=== PATIENT | female | born 1950 | race Caucasian/White ===

== ENCOUNTER 2018-05-25 17:51 | Inpatient (IN) | payer MEDICARE, OTHER ==
[~2018-05-25] VITALS: Ht 165.1 cm; Wt 98.4 kg
[~2018-05-25 17:51] MED LIST: ATEN50TA; LVT.05T; METF-380
[2018-05-25] MEDS ORDERED: GABA-486 PO (18:09)
[2018-05-25] MEDS ORDERED: NEED-118 (18:09)
[2018-05-25] MEDS ORDERED: CITA20TA9 PO (18:09)
[2018-05-25] MEDS ORDERED: LEVO75TA6 PO (18:09)
[2018-05-25] MEDS ORDERED: LOSA1TAB23 PO (18:09)
[2018-05-25] MEDS ORDERED: OMEP20CA12 PO (18:09)
[2018-05-25] MEDS ORDERED: INSU100I10 SC (18:09)
[2018-05-25] MEDS ORDERED: METF-399 PO (18:09)
[2018-05-25] MEDS ORDERED: ATEN50TA PO (18:09)
[2018-05-25 18:48] LABS: BILIRUBIN,URINE NEGATIVE (NEGATIVE); CLARITY,URINE CLEAR; COLOR,URINE YELLOW; GLUCOSE, URINE (UA) NEGATIVE (NEGATIVE); KETONES,URINE NEGATIVE (NEGATIVE); LEUKOCYTE ESTERASE ,URINE NEGATIVE (NEGATIVE); NITRITE,URINE NEGATIVE (NEGATIVE); PH,URINE 6 (5-9); PROTEIN,URINE NEGATIVE (NEGATIVE); UROBILINOGEN,URINE NORMAL (NORMAL)
[2018-05-25 18:49] LABS: BASOPHILS % (AUTO) 0 % (0-10); EOSINOPHILS # (AUTO) 0.2 10^3/uL (0.0-0.3); EOSINOPHILS % (AUTO) 1 % (0-10); HEMATOCRIT 39 % (35-52); HEMOGLOBIN 13.7 G/DL (11.5-16.0); LYMPHOCYTES # (AUTO) 2.1 X 10^3 (1.0-4.0); LYMPHOCYTES % (AUTO) 13 % (12-44); MEAN CORPUSCULAR HEMOGLOBIN 29 PG (25-34); MEAN CORPUSCULAR HGB CONC 35 G/DL (32-36); MEAN CORPUSCULAR VOLUME 84 FL (80-99); MEAN PLATELET VOLUME 13.3 FL (7.4-10.4); MONOCYTES % (AUTO) 6 % (0-12); NEUTROPHILS # (AUTO) 13.4 X 10^3 (1.8-7.8); NEUTROPHILS % (AUTO) 80 % (42-75); PLATELET COUNT 266 10^3/uL (130-400); RED BLOOD COUNT 4.69 10^6/uL (4.35-5.85); RED CELL DISTRIBUTION WIDTH 13.7 % (10.0-14.5); WHITE BLOOD COUNT 16.7 10^3/uL (4.3-11.0)
--- NOTE | 2018-05-25 18:55 | ED General ---
General Chief Complaint: Neurological Problems Stated Complaint: STROKE LIKE SYMPTOMS Nursing Triage Note: ARRIVED VIA WC TO TRIAGE. STATES TWO DAYS AGO SHE STARTED HAVING GENERALIZED WEAKNESS IN LEGS BILAT AND SOME DIZZINESS. Nursing Sepsis Screen: No Definite Risk Source of Information: Patient, Old Records (LAST VISIT HERE WAS IN 2008 FOR PALPITATIONS) Exam Limitations: Other (EXTREMELY VAGUE AND DIFFICULT HISTORIAN) History of Present Illness Date Seen by Provider: May 25, 2018 Time Seen by Provider: 18:30 Initial Comments PT ARRIVES VIA POV FROM HOME STATES "MY LEGS ARE WOBBLY AND I'M FPC NUMB" STATES SYMPTOMS ONGOING FOR A WEEK OR MORE PT STATES SHE HAS NEUROPATHY IN HER FEET AND USUALLY SHE HAS PAIN IN HER TOES AND FEET, BUT STATES THEY DON'T HURT AT ALL NOW--STATES "I CAN FEEL THEM OK, THEY JUST FEEL FPC NUMB' PT STATES SHE HAS BEEN OUT OF HER INSULIN FOR OVER 2 WEEKS, AND HER BLOOD GLUCOSE WAS OVER 600 2 DAYS AGO--STATES SHE GOT INSULIN FILLED LAST NIGHT AND STATES "IT'S FINE NOW--I TOOK 3 SHOTS AND GOT IT DOWN TO 54" YESTERDAY HAS NOT CHECKED BLOOD GLUCOSE TODAY, AND DOES NOT CHECK IT ON A DAILY BASIS-- HAD NOT CHECKED IT THE WHOLE TIME THAT SHE WAS OUT OF INSULIN, UNTIL 2 DAYS AGO WHEN IT WAS OVER 600 PT STATES "SOMETHING'S WRONG-SOMETHING'S MESSED UP" PT DOES NOT APPEAR TO RELATE THAT THERE COULD POSSIBLY BE A CONNECTION WITH HER BLOOD SUGAR BEING OVER 600, HER RUNNING OUT OF INSULIN, AND HER CURRENT SYMPTOMS, ESPECIALLY WITH HER HISTORY OF NEUROPATHY--DOES NOT APPEAR TO RECOGNIZE THAT HER SYMPTOMS COULD POSSIBLY BE RELATED TO HER DIABETES AT ALL. SYMPTOMS ARE NO DIFFERENT TODAY HAS NOT SOUGHT CARE FOR THIS UNTIL TODAY STATES GRANDSON MADE HER COME TO [facility] NO MOTOR DEFICITS NO HEADACHE NO VISION CHANGES NO CHEST PAIN NO SHORTNESS OF BREATH NO PALPITATIONS NO RECENT ILLNESS, FEVER, URI SYMPTOMS/COUGH, ETC. NO URINARY SYMPTOMS AND HAS BEEN VOIDING A NORMAL AMOUNT PT LATER STATES SHE HAS BEEN ON THE 'KETO DIET" FOR A MONTH AND HAS LOST 28 LBS PCP: DR. HARRISON--ROUTINE EXAM A COUPLE OF WEEKS AGO Allergies and Home Medications Allergies Uncoded Allergies: NKDA (Allergy, Mild, 05/08/09) Patient Home Medication List Home Medication List Reviewed: Yes Review of Systems Review of Systems Constitutional: see HPI; No chills, No diaphoresis, No dizziness; malaise, weakness, weight loss EENTM: no symptoms reported Respiratory: no symptoms reported; No cough, No dyspnea on exertion, No orthopnea, No short of breath, No wheezing Cardiovascular: no symptoms reported; No chest pain, No edema, No palpitations , No syncope, No vascular heart diseas Gastrointestinal: no symptoms reported; No abdominal pain, No constipation, No diarrhea, No loss of appetite, No nausea, No vomiting Genitourinary: no symptoms reported Musculoskeletal: see HPI Skin: no symptoms reported Psychiatric/Neurological: See HPI, Pre-Existing Deficit Hematologic/Lymphatic: No Symptoms Reported Immunological/Allergic: no symptoms reported Past Gkmvjej-Odnbvg-Hhlgxr Hx Patient Social History Alcohol Use: Denies Use Recreational Drug Use: No Smoking Status: Never a Smoker Recent Foreign Travel: No Contact w/Someone Who Travel: No Recent Infectious Disease Expo: No Recent Hopitalizations: No Seasonal Allergies Seasonal Allergies: No Past Medical History Surgeries: Yes (BILATERAL CATARACTS; BACK SURGERY/SPINAL DECOMRESSION 04/2018) Eye Surgery, Orthopedic, Tonsillectomy Respiratory: No Cardiac: Yes (VARICOSE VEINS) Hypertension, Palpitations Neurological: Yes (NEUROPATHY IN FEET) Neuropathy Genitourinary: Yes Bladder Infection Gastrointestinal: Yes (FATTY LIVER DISEASE) Gastroesophageal Reflux, Liver Disease/Jaundice Musculoskeletal: Yes (SPINAL DECOMPRESSION LAST MONTH) Arthritis, Chronic Back Pain Endocrine: Yes (OBESITY) Diabetes, Insulin dep HEENT: Yes Cataract Cancer: No Psychosocial: Yes Anxiety, Depression Integumentary: No Blood Disorders: No Physical Exam Vital Signs Vital Signs - First Documented 05/25/18 17:55 Temp 98.3 Pulse 78 Resp 16 B/P (MAP) 154/74 (100) Pulse Ox 94 O2 Delivery Room Air Capillary Refill : Less Than 3 Seconds Height, Weight, BMI Height: 5'5.00" Weight: 205lbs. oz. 92.199897dl; BMI Method:Stated General Appearance: No Apparent Distress, Obese, Other (WEARING A WIG) HEENT: Other (ORAL MUCOSA VERY DRY) Neck: Normal Inspection Respiratory: Normal Breath Sounds, No Accessory Muscle Use, No Respiratory Distress Cardiovascular: Regular Rate, Rhythm, No Edema, No JVD, No Murmur, Normal Peripheral Pulses Gastrointestinal: Normal Bowel Sounds, No Organomegaly, No Pulsatile Mass, Non Tender, Soft Back: No CVA Tenderness Extremity: Normal Capillary Refill, Normal Inspection, Normal Range of Motion, Non Tender, No Calf Tenderness, No Pedal Edema Neurologic/Psychiatric: Alert, Oriented x3, No Motor/Sensory Deficits (BUT WITH HX OF NEUROPATHY IN FEET, BUT DOES HAVE SENSATION TO LIGHT TOUCH), Normal Mood/Affect, inhalation therapist II-XII Norm as Tested Skin: Normal Color, Warm/Dry Focused Exam Lactate Level 05/25/18 20:06: Lactic Acid Level 3.98*H 05/25/18 22:34: Lactic Acid Level 3.96*H Progress/Results/Core Measures Suspected Sepsis Recent Fever Within 48 Hours: No Infection Criteria Present: None New/Unexplained Altered Menta: No Sepsis Screen: No Definite Risk SIRS Temperature:98.3 Pulse: 78 Respiratory Rate: 16 Laboratory Tests 05/25/18 18:30: White Blood Count 16.7H 05/26/18 07:30: White Blood Count 17.3H Blood Pressure 154 /74 Mean: 100 05/25/18 20:06: Lactic Acid Level 3.98*H 05/25/18 22:34: Lactic Acid Level 3.96*H Laboratory Tests 05/25/18 18:30: Creatinine 4.72H, INR Comment 1.1, Platelet Count 266, Total Bilirubin 0.5 05/26/18 07:30: Creatinine 4.25#H, Platelet Count 222, Total Bilirubin 0.5 Results/Orders Lab Results Laboratory Tests Test 05/25/18 17:56 05/25/18 18:30 05/25/18 18:40 05/25/18 18:50 Range/Units Glucometer 233 H 224 H 70-110 MG/DL White Blood Count 16.7 H 4.3-11.0 10^3/uL Red Blood Count 4.69 4.35-5.85 10^6/uL Hemoglobin 13.7 11.5-16.0 G/DL Hematocrit 39 35-52 % Mean Corpuscular Volume 84 80-99 FL Mean Corpuscular Hemoglobin 29 25-34 PG Mean Corpuscular Hemoglobin Concent 35 32-36 G/DL Red Cell Distribution Width 13.7 10.0-14.5 % Platelet Count 266 130-400 10^3/uL Mean Platelet Volume 13.3 H 7.4-10.4 FL Neutrophils (%) (Auto) 80 H 42-75 % Lymphocytes (%) (Auto) 13 12-44 % Monocytes (%) (Auto) 6 0-12 % Eosinophils (%) (Auto) 1 0-10 % Basophils (%) (Auto) 0 0-10 % Neutrophils # (Auto) 13.4 H 1.8-7.8 X 10^3 Lymphocytes # (Auto) 2.1 1.0-4.0 X 10^3 Monocytes # (Auto) 1.0 0.0-1.0 X 10^3 Eosinophils # (Auto) 0.2 0.0-0.3 10^3/uL Basophils # (Auto) 0.0 0.0-0.1 10^3/uL Neutrophils % (Manual) 74 % Lymphocytes % (Manual) 19 % Monocytes % (Manual) 4 % Eosinophils % (Manual) 0 % Basophils % (Manual) 1 % Band Neutrophils 2 % Blood Morphology Comment NORMAL Prothrombin Time 13.9 12.2-14.7 SEC INR Comment 1.1 0.8-1.4 Activated Partial Thromboplast Time 24 24-35 SEC Sodium Level 131 L 135-145 MMOL/L Potassium Level 4.3 3.6-5.0 MMOL/L Chloride Level 95 L 98-107 MMOL/L Carbon Dioxide Level 17 L 21-32 MMOL/L Anion Gap 19 H 5-14 MMOL/L Blood Urea Nitrogen 69 H 7-18 MG/DL Creatinine 4.72 H 0.60-1.30 MG/DL Estimat Glomerular Filtration Rate 9 BUN/Creatinine Ratio 15 Glucose Level 224 H 70-105 MG/DL Calcium Level 10.5 H 8.5-10.1 MG/DL Corrected Calcium 10.6 H 8.5-10.1 MG/DL Magnesium Level 1.9 1.8-2.4 MG/DL Total Bilirubin 0.5 0.1-1.0 MG/DL Aspartate Amino Transf (AST/SGOT) 44 H 5-34 U/L Alanine Aminotransferase (ALT/SGPT) 53 0-55 U/L Alkaline Phosphatase 81 40-136 U/L Total Protein 7.6 6.4-8.2 GM/DL Albumin 3.9 3.2-4.5 GM/DL TSH Placida Testing 1.13 0.35-4.94 UIU/ML Urine Color YELLOW Urine Clarity CLEAR Urine pH 6 5-9 Urine Specific [place] 1.020 1.016-1.022 Urine Protein NEGATIVE NEGATIVE Urine Glucose (UA) NEGATIVE NEGATIVE Urine Ketones NEGATIVE NEGATIVE Urine Nitrite NEGATIVE NEGATIVE Urine Bilirubin NEGATIVE NEGATIVE Urine Urobilinogen NORMAL NORMAL MG/DL Urine Leukocyte Esterase NEGATIVE NEGATIVE Urine RBC (Auto) NEGATIVE NEGATIVE Urine RBC RARE /HPF Urine WBC NONE /HPF Urine Crystals NONE /LPF Urine Bacteria NONE /HPF Urine Casts NONE /LPF Urine Mucus TRACE /LPF Urine Culture Indicated NO Test 05/25/18 20:06 05/25/18 20:48 05/25/18 22:34 05/26/18 05:10 Range/Units Lactic Acid Level 3.98 *H 3.96 *H 0.50-2.00 MMOL/L Blood Gas Puncture Site RIGHT RADIAL Blood Gas Patient Temperature 98.9 Arterial Blood pH 7.38 7.37-7.43 Arterial Blood Partial Pressure CO2 29 L 35-45 MMHG Arterial Blood Partial Pressure O2 80 79-93 MMHG Arterial Blood HCO3 16 *L 23-27 MMOL/L Arterial Blood Total CO2 17.3 L 21.0-31.0 MMOL/L Arterial Blood Oxygen Saturation 95 94-100 % Arterial Blood Base Excess -7.7 L -2.5-2.5 MMOL/L John Test POSITIVE Blood Gas Ventilator Setting NO Blood Gas Inspired Oxygen ROOM AIR Glucometer 57 *L 70-110 MG/DL Test 05/26/18 05:56 05/26/18 07:30 Range/Units Glucometer 103 70-110 MG/DL White Blood Count 17.3 H 4.3-11.0 10^3/uL Red Blood Count 4.52 4.35-5.85 10^6/uL Hemoglobin 13.3 11.5-16.0 G/DL Hematocrit 38 35-52 % Mean Corpuscular Volume 85 80-99 FL Mean Corpuscular Hemoglobin 29 25-34 PG Mean Corpuscular Hemoglobin Concent 35 32-36 G/DL Red Cell Distribution Width 13.7 10.0-14.5 % Platelet Count 222 130-400 10^3/uL Mean Platelet Volume 12.4 H 7.4-10.4 FL Neutrophils (%) (Auto) 70 42-75 % Lymphocytes (%) (Auto) 21 12-44 % Monocytes (%) (Auto) 7 0-12 % Eosinophils (%) (Auto) 1 0-10 % Basophils (%) (Auto) 0 0-10 % Neutrophils # (Auto) 12.2 H 1.8-7.8 X 10^3 Lymphocytes # (Auto) 3.7 1.0-4.0 X 10^3 Monocytes # (Auto) 1.2 H 0.0-1.0 X 10^3 Eosinophils # (Auto) 0.3 0.0-0.3 10^3/uL Basophils # (Auto) 0.0 0.0-0.1 10^3/uL Sodium Level 126 L 135-145 MMOL/L Potassium Level 3.8 3.6-5.0 MMOL/L Chloride Level 94 L 98-107 MMOL/L Carbon Dioxide Level 15 L 21-32 MMOL/L Anion Gap 17 H 5-14 MMOL/L Blood Urea Nitrogen 65 H 7-18 MG/DL Creatinine 4.25 #H 0.60-1.30 MG/DL Estimat Glomerular Filtration Rate 10 BUN/Creatinine Ratio 15 Glucose Level 127 H 70-105 MG/DL Calcium Level 9.1 8.5-10.1 MG/DL Corrected Calcium 9.3 8.5-10.1 MG/DL Total Bilirubin 0.5 0.1-1.0 MG/DL Aspartate Amino Transf (AST/SGOT) 37 H 5-34 U/L Alanine Aminotransferase (ALT/SGPT) 46 0-55 U/L Alkaline Phosphatase 74 40-136 U/L Total Protein 6.8 6.4-8.2 GM/DL Albumin 3.7 3.2-4.5 GM/DL My Orders Orders - MARIAMJUNE K DO Accucheck Stat ONCE (05/25/18 18:40) Saline Lock/Iv-Start (05/25/18 18:40) Ekg Tracing (05/25/18 18:40) Monitor-Rhythm Ecg Trace Only (05/25/18 18:40) Cbc With Automated Diff (05/25/18 18:40) Comprehensive Metabolic Panel (05/25/18 18:40) Magnesium (05/25/18 18:40) Protime With Inr (05/25/18 18:40) Partial Thromboplastin Time (05/25/18 18:40) Thyroid Analyzer (05/25/18 18:40) Ua Culture If Indicated (05/25/18 18:40) Manual Differential (05/25/18 18:30) Arterial Blood Gas (05/25/18 19:46) Lactic Acid Analyzer (05/25/18 19:46) Saline Lock/Iv-Start (05/25/18 19:46) Arterial Blood Draw (05/25/18 20:48) Vital Signs/I&O 05/25/18 05/25/18 05/26/18 05/26/18 20:47 21:10 00:10 01:00 Temp 98.9 99.2 97.9 Pulse 69 69 66 65 Resp 16 16 16 B/P (MAP) 98/68 119/68 (85) 116/59 (78) Pulse Ox 100 98 98 O2 Delivery Room Air Room Air Room Air 05/26/18 05/26/18 05/26/18 05/26/18 01:15 04:11 05:15 07:00 Temp 97.0 97.8 98.1 Pulse 65 63 58 58 Resp 16 16 16 B/P (MAP) 131/63 (85) 103/58 (73) 130/69 (89) Pulse Ox 97 94 95 O2 Delivery Room Air Room Air Room Air 05/26/18 08:04 Temp 97.2 Pulse 60 Resp 18 B/P (MAP) 147/67 (93) Pulse Ox 99 O2 Delivery Room Air Capillary Refill : Less Than 3 Seconds Blood Pressure Mean: 100 Progress Note : Progress Note UNEVENTFUL ER STAY ECG Initial ECG Impression Date: May 25, 2018 Initial ECG Impression Time: 18:44 Initial ECG Rate: 72 Initial ECG Rhythm: Normal Sinus Initial ECG Comparisson: No Previous ECG Available Departure Communication (Admissions) 1944--SPOKE WITH DR. ERAZO, ACCEPTS PT FOR ADMIT. ORDERS NOTED. Impression Primary Impression: RENAL FAILURE OF UNKNOWN DURATION Additional Impressions: IDDM (insulin dependent diabetes mellitus) Lactic acidosis due to diabetes mellitus Disposition: 09 ADMITTED INPATIENT Condition: Stable Admissions Decision to Admit Reason: Admit from ER (General) Decision to Admit/Date: May 25, 2018 Time/Decision to Admit Time: 19:45 JUNE BECERRA DO May 25, 2018 18:55
[2018-05-25 18:57] LABS: RBC,URINE RARE /HPF
[2018-05-25 19:05] LABS: INR 1.1 (0.8-1.4); PROTHROMBIN TIME PATIENT 13.9 SEC (12.2-14.7)
[2018-05-25 19:07] LABS: BAND NEUTROPHILS 2 %; BASOPHILS % (MANUAL) 1 %; EOSINOPHILS % (MANUAL) 0 %; LYMPHOCYTES % (MANUAL) 19 %; MONOCYTES % (MANUAL) 4 %; NEUTROPHILS % (MANUAL) 74 %; RBC MORPH NORMAL
[2018-05-25 19:16] LABS: ALBUMIN 3.9 GM/DL (3.2-4.5); BILIRUBIN,TOTAL 0.5 MG/DL (0.1-1.0); CALCIUM 10.5 MG/DL (8.5-10.1); CREATININE SERUM 4.72 MG/DL (0.60-1.30); MAGNESIUM 1.9 MG/DL (1.8-2.4); POTASSIUM 4.3 MMOL/L (3.6-5.0); TOTAL PROTEIN 7.6 GM/DL (6.4-8.2)
[2018-05-25 19:35] LABS: TSH (THYROID ANALYZER) 1.13 UIU/ML (0.35-4.94)
[2018-05-25 21:10] VITALS: BP 119/68
[2018-05-25] MEDS ORDERED: NS IV 1000 ML 1,000 ML ONE (21:18)
[2018-05-25] MEDS: NS IV 1000 ML 1,000 ML IV SCH (21:23)
[2018-05-25 21:45] LABS: ABG BASE EXCESS -7.7 MMOL/L (-2.5-2.5); ABG OXYGEN SATURATION 95 % (94-100); ABG PCO2 29 MMHG (35-45); ABG PH 7.38 (7.37-7.43); ABG PO2 80 MMHG (79-93); ABG TCO2 17.3 MMOL/L (21.0-31.0)
[2018-05-25 21:48] LABS: ALLENS TEST POSITIVE; INSPIRED O2 ROOM AIR; PATIENT TEMP 98.9; VENTILATOR NO
[2018-05-26] VITALS (10 sets, daily range): BP systolic 103–147; BP diastolic 57–70
[2018-05-26] MEDS ORDERED: NS IV 1000 ML 1,000 ML IV ONE (04:45)
[2018-05-26 07:40] LABS: BASOPHILS % (AUTO) 0 % (0-10); EOSINOPHILS # (AUTO) 0.3 10^3/uL (0.0-0.3); EOSINOPHILS % (AUTO) 1 % (0-10); HEMATOCRIT 38 % (35-52); HEMOGLOBIN 13.3 G/DL (11.5-16.0); LYMPHOCYTES # (AUTO) 3.7 X 10^3 (1.0-4.0); LYMPHOCYTES % (AUTO) 21 % (12-44); MEAN CORPUSCULAR HEMOGLOBIN 29 PG (25-34); MEAN CORPUSCULAR HGB CONC 35 G/DL (32-36); MEAN CORPUSCULAR VOLUME 85 FL (80-99); MEAN PLATELET VOLUME 12.4 FL (7.4-10.4); MONOCYTES # (AUTO) 1.2 X 10^3 (0.0-1.0); MONOCYTES % (AUTO) 7 % (0-12); NEUTROPHILS # (AUTO) 12.2 X 10^3 (1.8-7.8); NEUTROPHILS % (AUTO) 70 % (42-75); PLATELET COUNT 222 10^3/uL (130-400); RED BLOOD COUNT 4.52 10^6/uL (4.35-5.85); RED CELL DISTRIBUTION WIDTH 13.7 % (10.0-14.5); WHITE BLOOD COUNT 17.3 10^3/uL (4.3-11.0)
[2018-05-26] MEDS: inSUlin ASPART (NovoLOG) 1 UNIT/0.01 ML (CHARGE PER UNIT) SC SCH ×4 (07:45→21:27)
[2018-05-26 08:09] LABS: ALBUMIN 3.7 GM/DL (3.2-4.5); BILIRUBIN,TOTAL 0.5 MG/DL (0.1-1.0); CALCIUM 9.1 MG/DL (8.5-10.1); CREATININE SERUM 4.25 MG/DL (0.60-1.30); POTASSIUM 3.8 MMOL/L (3.6-5.0); TOTAL PROTEIN 6.8 GM/DL (6.4-8.2)
[2018-05-26] MEDS: NS IV 1000 ML 1,000 ML IV SCH ×3 (08:32→21:28)
--- NOTE | 2018-05-26 08:41 | History & Physical-Hospitalist ---
History of Present Illness HPI/Chief Complaint Mrs. York is a 68-year-old white female with known insulin-dependent type II diabetes mellitus had been out of her insulin for some time secondary to affordability issues. She stated that she had been on the doughnut hole. She is a very poor historian and wouldn't tell me how long she been out of insulin but it indicate that she had noticed several blood sugars over 600. She apparently became increasingly confused and weak and also had been taking ibuprofen an unknown amount for various body aches and pains. Overgrown protests she was brought into the emergency room because of erratic behavior and increased somnolence by her grandson. There was noted that she was in renal failure with a creatinine little over 4 mild likely lactic acidosis but no documented hypotension. She denied any infectious symptomatology see below review of systems. IV fluids were initiated and she was admitted to the floor. Date Seen 05/26/18 Time Seen by Provider: 08:30 Attending Physician Phoenix Harrison MD PCP Phoenix Harrison MD Referring Physician Date of Admission May 25, 2018 at 19:45 Home Medications & Allergies Home Medications Reviewed patient Home Medication Reconciliation performed by pharmacy medication reconciliations plant maintenance technician and/or nursing. Patients Allergies have been reviewed. Allergies Allergies Uncoded Allergies NKDA ( Allergy, Mild, 05/08/09) Past Lyippob-Wccosu-Zxmfxu Hx Past Med/Social Hx: Reviewed and Corrections made Patient Social History Alcohol Use: Denies Use Recreational Drug Use: No Smoking Status: Never a Smoker Physical Abuse Screen: No Sexual Abuse: No Recent Foreign Travel: No Contact w/other who traveled: No Recent Hopitalizations: No Recent Infectious Disease Expo: No Seasonal Allergies Seasonal Allergies: Yes Past Medical History Neurological: Neuropathy Sexually Transmitted Disease: No HIV/AIDS: No Female Reproductive Disorders: Denies Gastrointestinal: Gastroesophageal Reflux, Hemorrhoids Endocrine: Diabetes, Non-Insulin dep Are Your Blood Sugars Over 250: Yes Psychosocial: Anxiety, Depression History of Blood Disorders: No Adverse Reaction to Blood Maier: No Review of Systems Constitutional: weakness Respiratory: No cough, No dyspnea on exertion, No hemoptysis, No orthopnea, No phlegm, No short of breath, No wheezing Gastrointestinal: No RUQ, No LUQ, No RLQ, No LLQ, No no symptoms reported, No see HPI, No abdominal pain, No constipation, No diarrhea, No dysphagia, No hematemesis; heartburn; No jaundice, No loss of appetite, No melena; nausea ( mild); No vomiting, No other Genitourinary: No no symptoms reported, No see HPI; decreased output; No discharge, No dysuria, No frequency, No hematuria, No hesitancy, No incontinence , No nocturia, No pain Psychiatric/Neurological: Anxiety, Other (confusion) Physical Exam Physical Exam Vital Signs Vital Signs - First Documented 05/25/18 17:55 Temp 98.3 Pulse 78 Resp 16 B/P (MAP) 154/74 (100) Pulse Ox 94 O2 Delivery Room Air Capillary Refill : Less Than 3 Seconds Height, Weight, BMI Height: 5'5.00" Weight: 216lbs. 0.0oz. 97.377997em; 34.1 BMI Method:Stated General Appearance: No Apparent Distress, Anxious, Obese HEENT: PERRL/EOMI, Pharynx Normal Neck: Full Range of Motion, Normal Inspection, Non Tender, Supple, Carotid Bruit Respiratory: Chest Non Tender, Lungs Clear, Normal Breath Sounds, No Accessory Muscle Use, No Respiratory Distress Cardiovascular: Regular Rate, Rhythm, No Edema, No Gallop, No JVD, No Murmur, Normal Peripheral Pulses Gastrointestinal: Normal Bowel Sounds, No Organomegaly, No Pulsatile Mass, Non Tender, Soft Extremity: Normal Capillary Refill Neurologic/Psychiatric: Alert (O times 2), No Motor/Sensory Deficits (other than decreased sensation in feet to ankles), manager intensive care II-XII Norm as Tested Skin: Warm/Dry, Pallor (mild) Results Results/Procedures Labs Laboratory Tests 05/25/18 18:30 05/26/18 07:30 05/27/18 05:25 Patient resulted labs reviewed. Assessment/Plan Admission Diagnosis 1. Acute renal failure likely due to hypovolemia caused by hyperglycemia and lack of insulin production. There is mild associated lactic acidosis without evidence for diabetic ketoacidosis. We'll continue normal saline hold antihypertensive medication resuming insulin. For cost considerations will likely see about a switch to 70/30 mix insulin. Currently there is some mild hypoglycemia so for now we will just continue sliding scale a with consideration for twice a day 7030 starting either this evening or tomorrow morning. We'll continue to monitor basic metabolic panel. 2. Hyponatremia secondary to number 1 monitoring this as well as other electrolytes. 3. History of hypertension we will hold and hypertensive medication for now. 4. Discussed with the patient and nonsteroidal medication use may have contributed to number 1 is well and she will need to abstain from future use. UA does not reveal any evidence to suggest interstitial nephritis. 4. 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 Admission Status: Inpatient Order (span 2 midnights) Reason for Inpatient Admission: see above Assessment and Plan see above Critical Care Critically Ill Patient Clinical Quality Measures DVT/VTE Risk/Contraindication: Risk Factor Score Per Nursin RFS Level Per Nursing on Admit: 3=High PHOENIX HARRISON MD May 26, 2018 08:41
[2018-05-26] MEDS ORDERED: LEVOTHYROXINE 75 MCG (LEVOTHROID) TABLET PO NR (08:45)
[2018-05-26] MEDS ORDERED: PANTOPRAZOLE 40 MG (PROTONIX) TAB PO NR (09:30)
[2018-05-26] MEDS ORDERED: MULT-985 PO (09:44)
[2018-05-26] MEDS ORDERED: IBUP-30 PO (09:44)
[2018-05-26] MEDS ORDERED: GABA-486 PO (09:44)
[2018-05-27] VITALS (7 sets, daily range): BP systolic 114–161; BP diastolic 57–72
[2018-05-27] MEDS: NS IV 1000 ML 1,000 ML IV SCH ×2 (04:30→10:57)
[2018-05-27 05:53] LABS: BASOPHILS % (AUTO) 0 % (0-10); EOSINOPHILS # (AUTO) 0.3 10^3/uL (0.0-0.3); EOSINOPHILS % (AUTO) 2 % (0-10); HEMATOCRIT 35 % (35-52); HEMOGLOBIN 12.2 G/DL (11.5-16.0); LYMPHOCYTES # (AUTO) 2.8 X 10^3 (1.0-4.0); LYMPHOCYTES % (AUTO) 26 % (12-44); MEAN CORPUSCULAR HEMOGLOBIN 30 PG (25-34); MEAN CORPUSCULAR HGB CONC 35 G/DL (32-36); MEAN CORPUSCULAR VOLUME 85 FL (80-99); MEAN PLATELET VOLUME 12.9 FL (7.4-10.4); MONOCYTES # (AUTO) 0.8 X 10^3 (0.0-1.0); MONOCYTES % (AUTO) 7 % (0-12); NEUTROPHILS % (AUTO) 64 % (42-75); PLATELET COUNT 188 10^3/uL (130-400); RED BLOOD COUNT 4.09 10^6/uL (4.35-5.85); RED CELL DISTRIBUTION WIDTH 13.4 % (10.0-14.5); WHITE BLOOD COUNT 10.9 10^3/uL (4.3-11.0)
[2018-05-27] MEDS: inSUlin ASPART (NovoLOG) 1 UNIT/0.01 ML (CHARGE PER UNIT) SC SCH ×4 (06:16→20:25)
[2018-05-27 06:18] LABS: ALBUMIN 3.6 GM/DL (3.2-4.5); BILIRUBIN,TOTAL 0.4 MG/DL (0.1-1.0); CALCIUM 9.3 MG/DL (8.5-10.1); CREATININE SERUM 3.4 MG/DL (0.60-1.30); POTASSIUM 3.5 MMOL/L (3.6-5.0); TOTAL PROTEIN 6.7 GM/DL (6.4-8.2)
[2018-05-27] MEDS: LEVOTHYROXINE 75 MCG (LEVOTHROID) TABLET PO SCH (06:21)
[2018-05-27] MEDS: PANTOPRAZOLE 40 MG (PROTONIX) TAB PO SCH (06:21)
[2018-05-27] MEDS ORDERED: DILTIAZEM 180 MG (CARDIZEM CD) CAP PO NR (12:45)
[2018-05-27] MEDS ORDERED: HUM100VI SQ (12:49)
--- NOTE | 2018-05-27 12:55 | Progress Note-Hospitalist ---
Subjective HPI/CC On Admission Date Seen by Provider: May 27, 2018 Time Seen by Provider: 12:30 Mrs. York is a 68-year-old white female with known insulin-dependent type II diabetes mellitus had been out of her insulin for some time secondary to affordability issues. She stated that she had been on the doughnut hole. She is a very poor historian and wouldn't tell me how long she been out of insulin but it indicate that she had noticed several blood sugars over 600. She apparently became increasingly confused and weak and also had been taking ibuprofen an unknown amount for various body aches and pains. Overgrown protests she was brought into the emergency room because of erratic behavior and increased somnolence by her grandson. There was noted that she was in renal failure with a creatinine little over 4 mild likely lactic acidosis but no documented hypotension. She denied any infectious symptomatology see below review of systems. IV fluids were initiated and she was admitted to the floor. Subjective/Events-last exam Patient reports feeling better but is still little confused this morning. She denies nausea or pain and also denies shortness of breath. She's noted a significant pickup in urine volume and denies shortness of breath at rest. Focused Exam Lactate Level 05/25/18 20:06: Lactic Acid Level 3.98*H 05/25/18 22:34: Lactic Acid Level 3.96*H Objective Exam Vital Signs Vital Signs Date Time Temp Pulse Resp B/P (MAP) Pulse Ox O2 Delivery O2 Flow Rate FiO2 05/27/18 16:15 98.5 71 20 139/63 (88) 97 Room Air Capillary Refill : Less Than 3 Seconds General Appearance: No Apparent Distress, Obese Respiratory: Chest Non Tender, Lungs Clear, Normal Breath Sounds, No Accessory Muscle Use, No Respiratory Distress Cardiovascular: Regular Rate, Rhythm, No Edema, No Gallop, No JVD, No Murmur, Normal Peripheral Pulses Gastrointestinal: Normal Bowel Sounds, No Organomegaly, No Pulsatile Mass, Non Tender, Soft Extremity: Normal Capillary Refill, Normal Inspection, Normal Range of Motion, Non Tender, No Calf Tenderness, No Pedal Edema Results/Procedures Lab Laboratory Tests 05/27/18 05:25 Patient resulted labs reviewed. Assessment/Plan Assessment and Plan Assess & Plan/Chief Complaint Acute renal failure likely due to hypovolemia caused by hyperglycemia and noncompliance with insulin due to reported cost. Nonsteroidal medication may be contributing factor well. Addition is improving with increase in urine output and a decrease in creatinine to 3.4. As PO intake is good and her current liter runs and will DC IV fluid. In regards to her diabetes blood sugars thus far not been as high as I expected will initiate 7030 mix 10 before breakfast 5 before evening meal and continue when necessary sliding scale if there is continued improvement consider discharge in the morning. I've taken care of discharge planning tentatively and discussed the fact the patient would need to hold metformin abstain from ibuprofen as well as losartin. Blood pressure is trending higher will replace her atenolol with diltiazem CD. We'll continue to monitor basic metabolic panel. 2. Hyponatremia secondary to number 1 monitoring this as well as other electrolytes. 3. History of hypertension we will hold and hypertensive medication for now. 4. Discussed with the patient and nonsteroidal medication use may have contributed to number 1 is well and she will need to abstain from future use. UA does not reveal any evidence to suggest interstitial nephritis. 4. 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
[2018-05-27] MEDS ORDERED: inSUlin NPH/REG (NovoLIN 70/30) CHARGE PER UNIT SQ SCH (17:00)
[2018-05-27] MEDS ORDERED: GABAPENTIN 100 MG (NEURONTIN) CAP PO SCH (21:00)
[2018-05-28 04:45] VITALS: BP 108/53
[2018-05-28 06:01] LABS: BASOPHILS # (AUTO) 0.1 10^3/uL (0.0-0.1); BASOPHILS % (AUTO) 1 % (0-10); EOSINOPHILS # (AUTO) 0.3 10^3/uL (0.0-0.3); EOSINOPHILS % (AUTO) 4 % (0-10); HEMATOCRIT 32 % (35-52); HEMOGLOBIN 10.8 G/DL (11.5-16.0); LYMPHOCYTES # (AUTO) 2.5 X 10^3 (1.0-4.0); LYMPHOCYTES % (AUTO) 34 % (12-44); MEAN CORPUSCULAR HEMOGLOBIN 29 PG (25-34); MEAN CORPUSCULAR HGB CONC 34 G/DL (32-36); MEAN CORPUSCULAR VOLUME 87 FL (80-99); MEAN PLATELET VOLUME 13.1 FL (7.4-10.4); MONOCYTES # (AUTO) 0.6 X 10^3 (0.0-1.0); MONOCYTES % (AUTO) 8 % (0-12); NEUTROPHILS # (AUTO) 3.9 X 10^3 (1.8-7.8); NEUTROPHILS % (AUTO) 53 % (42-75); PLATELET COUNT 150 10^3/uL (130-400); RED BLOOD COUNT 3.71 10^6/uL (4.35-5.85); RED CELL DISTRIBUTION WIDTH 14.1 % (10.0-14.5); WHITE BLOOD COUNT 7.4 10^3/uL (4.3-11.0)
[2018-05-28 06:23] LABS: ALBUMIN 3.3 GM/DL (3.2-4.5); BILIRUBIN,TOTAL 0.5 MG/DL (0.1-1.0); CALCIUM 9.1 MG/DL (8.5-10.1); CREATININE SERUM 2.14 MG/DL (0.60-1.30); POTASSIUM 4.1 MMOL/L (3.6-5.0); TOTAL PROTEIN 6.1 GM/DL (6.4-8.2)
[2018-05-28] MEDS: PANTOPRAZOLE 40 MG (PROTONIX) TAB PO SCH (06:40)
[2018-05-28] MEDS: LEVOTHYROXINE 75 MCG (LEVOTHROID) TABLET PO SCH (06:40)
[2018-05-28] MEDS: inSUlin ASPART (NovoLOG) 1 UNIT/0.01 ML (CHARGE PER UNIT) SC SCH ×2 (06:40→11:48)
[2018-05-28] MEDS ORDERED: inSUlin NPH/REG (NovoLIN 70/30) CHARGE PER UNIT SQ SCH (07:00)
[2018-05-28 08:32] VITALS: BP 136/60
[2018-05-28] MEDS ORDERED: DILTIAZEM 180 MG (CARDIZEM CD) CAP PO SCH (09:00)
--- NOTE | 2018-05-28 11:06 | Progress Note-Hospitalist ---
Subjective HPI/CC On Admission Date Seen by Provider: May 28, 2018 Time Seen by Provider: 10:45 Mrs. York is a 68-year-old white female with known insulin-dependent type II diabetes mellitus had been out of her insulin for some time secondary to affordability issues. She stated that she had been on the doughnut hole. She is a very poor historian and wouldn't tell me how long she been out of insulin but it indicate that she had noticed several blood sugars over 600. She apparently became increasingly confused and weak and also had been taking ibuprofen an unknown amount for various body aches and pains. Overgrown protests she was brought into the emergency room because of erratic behavior and increased somnolence by her grandson. There was noted that she was in renal failure with a creatinine little over 4 mild likely lactic acidosis but no documented hypotension. She denied any infectious symptomatology see below review of systems. IV fluids were initiated and she was admitted to the floor. Subjective/Events-last exam Patient is feeling much better but is a little reluctant to go home because a refrigerator quit. Is not sure she has much food left in the house because she had up a lot of packets of food that she kept intermediate tray in the house. She is also unsure if she has any insulin but she has been started on new insulin and many of her medications were discontinued. Her grandson is to be taking her home today. She is eating and drinking well and without problems. Focused Exam Lactate Level 05/25/18 20:06: Lactic Acid Level 3.98*H 05/25/18 22:34: Lactic Acid Level 3.96*H Objective Exam Vital Signs Vital Signs Date Time Temp Pulse Resp B/P (MAP) Pulse Ox O2 Delivery O2 Flow Rate FiO2 05/28/18 08:32 98.8 69 20 136/60 (85) 96 Room Air Capillary Refill : Less Than 3 Seconds General Appearance: No Apparent Distress, WD/WN HEENT: Normal ENT Inspection Neck: Normal Inspection, Non Tender, Supple Respiratory: Lungs Clear, Normal Breath Sounds, No Accessory Muscle Use, No Respiratory Distress Cardiovascular: Regular Rate, Rhythm, No Edema, No Gallop, No JVD, No Murmur, Normal Peripheral Pulses Gastrointestinal: Normal Bowel Sounds, No Organomegaly, Non Tender, Soft Back: Normal Inspection, No CVA Tenderness, No Vertebral Tenderness Extremity: Normal Capillary Refill, Normal Inspection, Non Tender Neurologic/Psychiatric: Alert, Oriented x3, No Motor/Sensory Deficits, Normal Mood/Affect Results/Procedures Lab Laboratory Tests 05/28/18 05:18 Patient resulted labs reviewed. Assessment/Plan Assessment and Plan Assess & Plan/Chief Complaint 1. Acute renal failure resolving with medication changes and hydration. 2. Type II diabetes with improved control on new insulin dosage off metformin 3. Hypertension good control Dr. Waddell's written for the discharge and the medication changes she's to follow-up with him next week. Critical Care Critical Care: Critically Ill Patient Clinical Quality Measures DVT/VTE Risk/Contraindication: Risk Factor Score Per Nursin RFS Level Per Nursing on Admit: 3=High MICAELA BENNETT MD May 28, 2018 11:06
[2018-05-28 11:48] VITALS: BP 147/70
--- NOTE | 2018-06-02 08:53 | Physician Query-Final Dx ---
GENARO GREGORY 06/02/18 0853: Final Diagnosis Give Final Diagnosis Please give Final Diagnosis MICAELA BENNETT MD 06/09/18 1229: Final Diagnosis Give Final Diagnosis acute renal failure Diabetes out of control secondary to non-complience Dehydration secondary to hyperglycemia hypertension GENARO GREGORY Jun 02, 2018 08:53 MICAELA BENNETT MD Jun 09, 2018 12:29
== END 2018-05-28 14:00 | disposition home or self-care (01) | DRG 683 ==
LOC: EDUNIT# 17:51 → ER 17:52 → UNDOADMOB 19:45 → 4TH 19:45 → OBSVTOIN 05-26 09:07 → INTOOBSV 05-26 09:10 → OBSVTOIN 05-26 09:10 → UNDODISIN 05-28 14:00
PROVIDERS: ADMIT Internal Medicine; ATTEND Internal Medicine
DX: N17.9 Acute kidney failure, unspecified (principal); E87.1 Hypo-osmolality and hyponatremia; E11.65 Type 2 diabetes mellitus with hyperglycemia; E11.40 Type 2 diabetes mellitus with diabetic neuropathy, unspecified; K76.0 Fatty (change of) liver, not elsewhere classified; Z79.4 Long term (current) use of insulin; Z91.120 Patient's intentional underdosing of medication regimen due to financial hardship; E86.1 Hypovolemia; I10 Essential (primary) hypertension; E06.3 Autoimmune thyroiditis; K21.9 Gastro-esophageal reflux disease without esophagitis; M19.91 Primary osteoarthritis, unspecified site; F41.8 Other specified anxiety disorders
CPT/HCPCS: 36415; 36600; 80053; 81000; 82805; 82962; 83605; 83735; 84443; 85007; 85025; 85027; 85610; 85730; 93005; G0378

== ENCOUNTER → 2020-02-08 | Outpatient (CLI) | payer MEDICARE, OTHER ==
[~2020-02-08] MED LIST changes: +ATEN50TA PO; +CITA20TA9 PO; +GABA-486 PO; +HUM100VI SQ; +IBUP-30 PO; +INSU100I10 SC; +LEVO75TA6 PO; +LOSA1TAB23 PO; +METF-399 PO; +MULT-985 PO; +NEED-118; +OMEP20CA18 PO
--- NOTE | 2020-02-08 16:01 | Diagnostic Imaging Report ---
INDICATION: Low back pain. TIME OF EXAM: 02:52 p.m. FINDINGS: Frontal and lateral views of the lumbar spine were obtained. Curvature and alignment appear normal. Vertebral body heights are well maintained. No acute compression fracture is detected. Generalized degenerative disc disease with variable disc space narrowing is noted. This is greatest at the L4-L5 level. There does appear to be lower lumbar facet arthropathy at the L4-L5 and L5-S1 levels. IMPRESSION: Lower lumbar spondylosis and facet arthropathy. No acute bony abnormality is detected. Dictated by: Dictated on workstation # [id number]
== END ==
LOC: RAD 14:31
PROVIDERS: ATTEND Internal Medicine
DX: M47.817 Spondylosis without myelopathy or radiculopathy, lumbosacral region (principal)
CPT/HCPCS: 72100

== ENCOUNTER → 2020-02-12 | Outpatient (CLI) | payer MEDICARE, OTHER ==
--- NOTE | 2020-02-12 10:56 | Diagnostic Imaging Report ---
PROCEDURE: US Renal Bilateral. TECHNIQUE: Multiple real-time grayscale images were obtained over the kidneys in various projections bilaterally. INDICATION: Chronic kidney disease. There are no prior studies available for comparison. FINDINGS: Both kidneys were identified although the kidneys were difficult to image. The right kidney measures 9.8 x 6.1 x 4.4 cm while left kidney is estimated to be 10.8 x 4.3 x 4.6 cm. There is no evidence for solid renal mass or for hydronephrosis of either kidney. The renal cortices are thinned but normal in echogenicity. There is no shadowing from the kidneys to suggest nephrolithiasis. The bladder is only partially filled and consequently not well evaluated. There is no obvious bladder abnormality evident. Neither ureteral jet could be identified, however. IMPRESSION: 1. There is no evidence for solid renal mass or for an acute abnormality of either kidney. 2. The renal cortices are thinned but normal in echogenicity. 3. There is no obvious bladder abnormality evident. Dictated by: Dictated on workstation # [id number]
== END ==
LOC: RAD 08:58
PROVIDERS: ATTEND Internal Medicine
DX: N18.3 Chronic kidney disease, stage 3 (moderate) (principal); M54.5 Low back pain; N17.1 Acute kidney failure with acute cortical necrosis
CPT/HCPCS: 76770

== ENCOUNTER → 2021-05-26 | Outpatient (CLI) | payer MEDICARE, OTHER | LOC: CARD 12:00 | PROVIDERS: ATTEND Internal Medicine | DX: I10 Essential (primary) hypertension (principal); R01.1 Cardiac murmur, unspecified; R06.02 Shortness of breath; I35.1 Nonrheumatic aortic (valve) insufficiency | CPT/HCPCS: 93306 ==

== ENCOUNTER → 2022-01-20 | Outpatient (CLI) | payer MEDICARE ==
[~2022-01-20] MED LIST changes: +MULT-1054 PO; -MULT-985 PO
--- NOTE | 2022-01-20 16:02 | Diagnostic Imaging Report ---
INDICATION: Postmenopausal COMPARISON: 09/08/2011 FINDINGS: AP Spine L1-L4: [BMD (g/cm2): 0.994] [T-Score: -1.7] [Z-Score: -1.1] [BMD Previous: 1.243] [BMD % Change: -20.0] LT Hip Neck: [BMD (g/cm2): 0.745] [T-Score: -2.1] [Z-Score: -1.0] LT Hip Total: [BMD (g/cm2):0.861] [T-Score:-1.2] [Z-Score: -0.4] [BMD Previous: 1.057] [BMD % Change: -18.5] RT Hip Neck: [BMD (g/cm2):0.772] [T-Score:-1.9] [Z-Score:-0.8] RT Hip Total: [BMD (g/cm2):0.813] [T-score:-1.5] [Z-Score:-0.8] [BMD Previous:1.012] [BMD % Change:-19.7] *Indicates significant change from prior examination based on 95% confidence level. World Health Organization criteria for BMD interpretation classify patients as Normal (T-score at or above -1.0), Osteopenic (T-score between -1.0 and -2.5) or Osteoporotic (T-score at or below -2.5). LIMITATIONS AND MODIFICATION: None. FRACTURE RISK (FRAX SCORE): The ten year probability of (%): Major Osteoporotic Fracture: [18.4] Hip Fracture: [3.8] IMPRESSION: 1. Osteopenia (Low bone mass). 2. interval worsening 3. See below National Osteoporosis Foundation guidelines on when to potentially initiate pharmacologic therapy. Based on the National Osteoporosis Foundation Guidelines, pharmacologic treatment should be initiated in any of the following, unless clinical conditions suggest otherwise: * Any patient with prior fragility fracture of the hip or vertebrae. A spine fracture indicates 5X risk for subsequent spine fracture and 2X risk for subsequent hip fracture. * Osteoporosis (T-score <-2.5). * Postmenopausal women and men age 50 and older with low bone mass/osteopenia (T-score between -1.0 and -2.5) by DXA and 10-year major osteoporotic fracture greater than 20% or a 10-year probability of hip fracture greater than 3%. These fracture risks are supplied above in the FRAX score, if applicable. * Clinician judgement and/or patient preferences may indicate treatment for people with 10-year fracture probabilities above or below these levels. Dictated by: Dictated on workstation # [id number]
== END ==
LOC: RAD 12:30
PROVIDERS: ATTEND Nurse Practitioner Family
DX: M85.80 Other specified disorders of bone density and structure, unspecified site (principal); Z78.0 Asymptomatic menopausal state
CPT/HCPCS: 77080